=== PATIENT | female | born 1970 | race African-American/Black ===

== ENCOUNTER 2018-11-06 12:33 | Inpatient (IN) ==
--- NOTE | 2018-11-06 13:07 | PROVIDER DOCUMENTATION ---
HPI-General Adult - General Chief Complaint: Edema Stated Complaint: sick Time Seen by Provider: 11/06/18 13:00 Source: patient, family Allergies/Adverse Reactions: Patient Allergies Allergy/AdvReac Type Severity Reaction Status Date / Time No Known Allergies Allergy Verified 04/27/15 11:18 Home Medications: Home Medication List Medication Instructions Recorded Confirmed Last Taken Type Dalfampridine [Ampyra] 10 mg PO BID 11/06/18 11/06/18 11/06/18 History Prednisone 10 mg PO DIRECTED 11/06/18 11/06/18 11/06/18 History Solifenacin Succinate [Vesicare] 10 mg PO DAILY 11/06/18 11/06/18 11/06/18 05:00 History - History of Present Illness -Gen Adult Nature of Presenting Problems: 48 YOF presents with edema in LLE after being seen by [facility] RN. She denies pain. Spouse reports the patient has declined over the last 2 months and is now unable to walk without assistance. She has had multiple falls the most recent last week. The patient denies hitting her head or other injury. She also reports increased urination. The urine odor is noted when entering the room. Location of Pain/Injury: reports: none. denies: head, face, mouth, neck, chest, upper extremity, hand(s), abdomen, back, pelvis, genitalia, lower extremity, feet, upper body, lower body, generalized, other Pain Radiation: denies: no radiation, arm(s), back, buttocks, chest, epigastric, feet, groin, jaw, flank (L), legs (lower), LLQ, LUQ, neck, periumbilical, flank (R), RLQ, RUQ, shoulder(s), scapula, scrotal, sternal notch, suprapubic, legs (upper), urethral, vaginal, other Quality of Pain: reports: none Onset/Duration: reports: other (General decline over the last few months, multiple falls most recent one week ago) Timing: reports: still present Context/Activities at Onset: reports: none Modifying Factors: improves with: nothing Associated Symptoms: reports: genitourinary problems Similar Symptoms Previously?: No Recently seen or treated by another doctor?: Yes Review of Systems - Adult - REVIEW OF SYSTEMS - ADULT Constitutional: reports: no symptoms reported. denies: see HPI, chills, fever, fatique, night sweats, weight gain, weight loss, other Eyes: reports: no symptoms reported. denies: see HPI, discharge, dry eyes, decreased vision, blurred vision, double vision, eye pain, redness, other Ears, Nose, Mouth & Throat: reports: no symptoms reported. denies: see HPI, ear discharge, ear pain, hearing loss, tinnitus, epistaxis, sinus problem, nose pain, loose teeth, mouth/dental pain, mouth swelling, hoarseness, throat pain, throat swelling, other Cardiovascular: reports: no symptoms reported. denies: see HPI, chest pain, edema, heart murmur, irregular heart rate, orthopnea, palpitations, poor circulation, PND, syncope, other Respiratory: reports: no symptoms reported. denies: see HPI, chronic cough, cough, dyspnea on exertion, excessive sputum production, hemoptysis, pleurisy, shortness of breath, wheezing, other Gastrointestinal: reports: no symptoms reported. denies: see HPI, abdominal pain, hematemesis, constipation, diarrhea, difficulty swallowing, frequent heartburn, nausea, poor appetite, rectal bleeding, vomiting, other Genitourinary: reports: other (foul smelling urine, on mestrual cycle at this time). denies: no symptoms reported, see HPI, dysuria, discharge, frequency, flank pain, frequent UTI's, hematuria, hesitency, incontinence, urinary retention, urgency Musculoskeletal: reports: muscle aches, muscle weakness, other (spasms, known MS recieving treatment). denies: no symptoms reported, see HPI, bone pain, back pain, frequent leg cramps, joint pain, joint swelling, neck pain Integumentary: reports: no symptoms reported. denies: see HPI, hives, hair loss, itching, mole changes, nail changes, rash, skin sores/ulcer, skin thickening, other Neurological: reports: loss of balance. denies: no symptoms reported, see HPI, ataxia, dizziness/vertigo, headache/migraines, numbness, paresthesia, seizure, slurred speech, syncope, tremors, other Psychiatric: reports: no symptoms reported. denies: see HPI, anxiety, anti- depressant use, alcohol/drug dependence, depression, emotional problems, insomnia, panic attacks, suicidal thoughts, other Endocrine: reports: no symptoms reported. denies: see HPI, change in skin pigment, excessive sweating, goiter, cold intolerance, heat intolerance, increased hunger, increased thirst, polyuria, other Hematologic/Lymphatic: reports: no symptoms reported. denies: see HPI, blood clots, easy bruising, low blood count, lymphedema, prolonged bleeding, swollen lymph nodes, transfusions, other Allergic/Immunologic: reports: no symptoms reported. denies: see HPI, allergic reactions, allergic rhinitis, asthma, eczema, food allergy, frequent infections, hay fever, hives, positive PPD, urticaria, other Past History - Adult - PAST MEDICAL HISTORY-ADULT Review of Records: reports: Nursing Assessment Review, Social history reviewed & non-contributory. Neurological: reports: Multiple Sclerosis - PRIOR SURGERIES/PROCEDURES Surgical/Procedure History: reports: other (breast reduction) Physical Exam-General - CONSTITUTIONAL General Appearance: alert, no apparent distress - EYES Eyes: PERRL/EOMI, pink conjunctivae - HEAD, EARS, NOSE, MOUTH & THROAT HENMT: normocephalic/atraumatic, moist mucous membranes - NECK Neck: non-tender - RESPIRATORY Respiratory: chest non-tender, lungs clear, no respiratory distress - CARDIOVASCULAR Cardiovascular: normal peripheral pulses, regular rate, rhythm - GASTROINTESTINAL (ABDOMEN) Abdominal Exam: normal bowel sounds, non tender - LYMPHATIC Lymphatic: no adenopathy - MUSCULOSKELETAL Back Exam: normal inspection, no CVA tenderness Extremity: normal range of motion, non-tender - SKIN Integumentary: normal color, normal turgor - NEUROLOGIC Neurologic: grossly normal - PSYCHIATRIC Psych/Mental Status: normal mood/affect, oriented x 3 Progress - PLAN OF CARE/RESULTS Progress/Plan/Lab Results: Orders Category Date Time Status Saline Loc NOW Care 11/06/18 12:59 Ordered CHEST-1 VIEW [RAD] Stat Exams 11/06/18 12:59 Ordered BMP [BASIC METABOLIC PANEL] [CHEM] Stat Lab 11/06/18 13:00 Uncollected CBC WITH ELECTRONIC DIFF [HEME] Stat Lab 11/06/18 13:00 Uncollected D-DIMER [COAG] Stat Lab 11/06/18 13:00 Uncollected PROTIME WITH INR [COAG] Stat Lab 11/06/18 12:59 Uncollected PTT [COAG] Stat Lab 04/24/19 12:59 Uncollected URINALYSIS W/POSS RFLX CULT [URINALYSIS] Stat Lab 11/06/18 12:59 Uncollected Result Diagrams: 11/06/18 13:15 11/06/18 13:15 - REASSESSMENT Reassessment #1 Time Reassessed: 15:28 (SPOKE WITH HOSPITALIST FOR ADMIT) Departure - Departure Date of Disposition Decision: 11/06/18 Time of Disposition Decision: 15:25 DIAGNOSIS: DVT (deep venous thrombosis) Disposition: ADMITTED INPATIENT 09 Certified Medical Emergency: Emergent Condition: Stable - Critical Care Note This patient required my direct & personal management of CC.: No Attestation - Physician/ MAXIMINO Attestation Patient care was provided by Advanced Practice Provider:: Yes Advanced Practice Provider:: Delia Enamorado Advanced Practice Provider documentation review:: The Mid-level provider documentation, treatment plan and medical decision making was reviewed by the physician who agrees with all treatment and medical decision making by the MLP. The physician spent face to face time with patient:: No Advanced Practice Provider documentation review:: Supervising physician onsite and consulted in the evaluation and care of this patient. The physician did not have a face to face encounter with the patient.
[2018-11-06 13:32] LABS: URINE SOURCE CATH
[2018-11-06 13:37] LABS: BASO# 0.01 X1000 (0.0-0.2); BASO% 0.1 % (0.0-0.8); BILIRUBIN URINE NEGATIVE (NEGATIVE); BLOOD URINE NEGATIVE (NEGATIVE); COLOR YELLOW; EOS# 0.01 X1000 (0.0-0.7); EOS% 0.1 % (0.0-10.0); GLUCOSE URINE NEGATIVE (NEGATIVE); HEMATOCRIT 32.9 % (37.0-47.0); HEMOGLOBIN 10.7 g/dL (12.0-16.0); IMM GRAN% 1.5 % (0.0-0.5); KETONE URINE NEGATIVE (NEGATIVE); LEUKOCYTES URINE NEGATIVE (NEGATIVE); LYMPH# 1.39 X1000 (1.2-3.4); LYMPH% 10.5 % (20.5-51.1); MCH 26.5 PG (27-31); MCHC 32.5 g/dL (33-37); MCV 81.4 FL (81-99); MONO# 0.61 X1000 (0.11-0.59); MONO% 4.6 % (1.7-9.3); MPV 9.4 FL (7.4-10.4); NEUT# 11.02 X1000 (1.4-6.5); NEUT% 83.2 % (42.2-75.2); NITRITE URINE NEGATIVE (NEGATIVE); PH URINE 8.5; PLT 344 X1000 (130-400); PROTEIN URINE NEGATIVE (NEGATIVE); RBC 4.04 XMIL (4.2-5.4); RDW 17.5 % (11.5-14.5); SP GRAVITY URINE 1.013; TURBIDITY URINE HAZY (CLEAR); UR EPITHELIAL CELLS <10 /HPF (<10); URINE BACTERIA NEGATIVE /HPF; URINE RBC <10 /HPF (<10); URINE WBC <10 /HPF (<10); UROBILINOGEN URINE NORMAL (NORMAL); WBC 13.24 X1000 (4.8-10.8)
--- NOTE | 2018-11-06 13:55 | Diag Imaging Result Doc PS360 ---
EXAM: CHEST-1 VIEW HISTORY: Cough TECHNIQUE: Portable chest single view COMPARISON: None. FINDINGS: The lungs are well expanded. The heart is not enlarged. The vessels are not distended. There are no infiltrates. No effusion identified. IMPRESSION: No pneumonia. Electronically signed by Vasiliy Lucero 11/06/2018 1:52 PM
[2018-11-06 14:19] LABS: INR 0.94; PROTIME 13.3 Seconds (11.0-16.0)
[2018-11-06 14:20] LABS: PTT 26.2 Seconds (22.3-41.8)
[2018-11-06 14:22] LABS: AGAP 10; BUN 14 mg/dL (8-22); CALCIUM 9.2 mg/dL (8.8-10.2); CHLORIDE 103 mmol/L (98-107); COSMO 279; CREATININE 0.6 mg/dL (0.5-0.9); ESTIMATED GFR > 60; GLUCOSE 117 mg/dL (70-104); POTASSIUM 3.7 mmol/L (3.5-5.1); SODIUM 139 mmol/L (136-145); TCO2 26 mmol/L (25-35)
[2018-11-06 14:22] LABS: D-DIMER 1.73 ug/mLFEU (0.0-0.52)
[2018-11-06] MEDS ORDERED: LOVENOX 1 MG/KG SUBQ ONE (15:18)
[2018-11-06] MEDS ORDERED: LOVENOX SUBQ ONE (15:30)
[2018-11-06] MEDS ORDERED: TYLENOL PO PRN (16:02)
[2018-11-06] MEDS ORDERED: ZOFRAN IV PRN (16:02)
--- NOTE | 2018-11-06 16:47 | HISTORY AND PHYSICAL ---
HISTORY OF PRESENT ILLNESS: This is a 48-year-old who has a history of multiple sclerosis treated by Dr. De La Paz. I do not know that she has a primary care physician. PAST MEDICAL HISTORY: No other significant medical history. SURGICAL HISTORY: Has bilateral tubal ligation. She has had breast reduction. ALLERGIES: No known drug allergies. SOCIAL HISTORY: She quit smoking. No alcohol. No illicit drugs. She lives here in [place] with her . She presented after having left lower leg swelling around her left calf. No real pain. No rash. No fever or chills reported. Dopplers revealed a deep venous thrombosis in the soleal vein. She has never had a blood clot before that she recalls, but the main complaint was the swelling. FAMILY HISTORY: with cancer. Really no other family history that she reports. REVIEW OF SYSTEMS: She does not report any change in appetite or weight gain or loss. No fever or chills.HEENT: No change in hearing or visual acuity. Musculoskeletal/Neurologic: She has multiple sclerosis and that is actually improved and right now she is on steroids. Cardiovascular: No chest pain or tachy palpitation. Respiratory: No increased work of breathing or dyspnea or cough or pleuritic pain. Endocrinologic/Hematologic: No significant history. Gastrointestinal and Genitourinary: No gross hematuria or dysuria or hematochezia or change in bowels. PHYSICAL EXAMINATION: GENERAL: In the emergency room, she is awake and alert, oriented x3. VITAL SIGNS: Temperature 98 degrees, pulse 79, respirations 22, blood pressure 137/95. HEENT: Her pupils appear equal. NECK: No distended neck veins. No cervical or supraclavicular adenopathy. LUNGS: Clear anterior and lateral. CARDIOVASCULAR: Regular rhythm and rate without murmur or S3. Carotid, radial, and femoral pulses 2+ and symmetrical. ABDOMEN: Soft, nondistended. EXTREMITIES: No other edema other than swelling, nonpitting circumferential swelling around the left calf. No palpable cords. Good capillary refill in the feet. Pedal pulses 2+ and symmetrical. DIAGNOSTIC STUDIES: White count 13,240 and she is on steroids, hematocrit 32, platelet count 344,000. Sodium 139, potassium 3.7, chloride 103, BUN 14, creatinine 0.6, calcium 9.2. Urinalysis unremarkable. Chest x-ray: No pneumonitis. No infiltrates. Lungs well expanded. Cardiomediastinal silhouette unremarkable. ASSESSMENT AND PLAN: 1. Left deep venous thrombosis. No sign of pulmonary thromboemboli. We are going to put her on unfractionated heparin with Lovenox 1 mg/kg subcutaneous q.12 h. and let her go home, probably on Xarelto. We will keep her 24 hours, admit her to observation. 2. Multiple sclerosis. We will have her continue her current medications. We need to get a list of those and continue her steroids as well. Lab unremarkable. 3. Volume status looks good. 4. Hemodynamically looks stable. cc: Efren Weber MD [facility]TD[facility]
[2018-11-07] MEDS: LOVENOX SUBQ SCH ×2 (05:29→17:28)
[2018-11-07 07:45] LABS: BASO# 0.02 X1000 (0.0-0.2); BASO% 0.2 % (0.0-0.8); EOS# 0.09 X1000 (0.0-0.7); EOS% 0.9 % (0.0-10.0); HEMOGLOBIN 9.9 g/dL (12.0-16.0); LYMPH# 2.28 X1000 (1.2-3.4); LYMPH% 22.2 % (20.5-51.1); MCH 27.3 PG (27-31); MCHC 31.9 g/dL (33-37); MCV 85.4 FL (81-99); MONO# 0.85 X1000 (0.11-0.59); MONO% 8.3 % (1.7-9.3); MPV 10.2 FL (7.4-10.4); NEUT# 6.95 X1000 (1.4-6.5); NEUT% 67.4 % (42.2-75.2); PLT 295 X1000 (130-400); RBC 3.63 XMIL (4.2-5.4); RDW 18.2 % (11.5-14.5); WBC 10.29 X1000 (4.8-10.8)
[2018-11-07 08:12] LABS: AGAP 11; ALBUMIN 3.3 g/dL (3.5-5.0); ALKALINE PHOSPHATASE 75 U/L (32-104); BUN 14 mg/dL (8-22); CALCIUM 8.2 mg/dL (8.8-10.2); CHLORIDE 103 mmol/L (98-107); COSMO 275; CREATININE 0.5 mg/dL (0.5-0.9); ESTIMATED GFR > 60; GLUCOSE 108 mg/dL (70-104); GOT 11 U/L (10-30); GPT 16 U/L (10-36); POTASSIUM 3.5 mmol/L (3.5-5.1); SODIUM 137 mmol/L (136-145); TCO2 24 mmol/L (25-35); TOTAL PROTEIN 5.8 g/dL (6.3-8.3)
[2018-11-07 08:13] LABS: INR 1.03; PTT 30.2 Seconds (22.3-41.8)
[2018-11-07 08:31] LABS: FREE T4 1.25 ng/dL (0.93-1.70); TSH 2.48 uIUmL (0.27-4.20)
[2018-11-07] MEDS ORDERED: PREDNISONE PO SCH (10:45)
[2018-11-07] MEDS: VESICARE PO SCH (11:57)
[2018-11-07] MEDS: PREDNISONE PO SCH (11:57)
[2018-11-07] MEDS: PATIENT'S OWN MED PO SCH ×2 (11:58→21:00)
--- NOTE | 2018-11-07 12:59 | Diag Imaging Result Doc PS360 ---
FOREARM-RIGHT - 11/07/2018 INDICATION: missing catheter tip TECHNIQUE: Two views COMPARISON: None FINDINGS: Bones are intact and normally aligned. Joint spaces and soft tissues are clear. No radiodense foreign body visible. IMPRESSION: Negative exam. Electronically signed by Serjio Falcon 11/07/2018 12:56 PM
--- NOTE | 2018-11-07 13:45 | Extremity Venous Study ---
EXAM: Venous U/S Right Arm 11/07/2018 HISTORY: possible IV cannula broken off. TECHNIQUE: Venous ultrasound of the right arm with color Doppler flow COMMENT: No definite foreign bodies are demonstrated in the veins of the right arm. There is no evidence of deep venous or superficial venous thrombosis. No abnormal fluid collections are demonstrated. There is color Doppler flow in the veins. Plain radiographs of the forearm were also obtained which did not demonstrate a radiopaque foreign body. The upper arm has not been evaluated with plain films. IMPRESSION: No evidence of venous thrombosis or intravenous foreign body. Electronically signed by Denny Marie 11/07/2018 1:42 PM
--- NOTE | 2018-11-07 14:02 | PROGRESS NOTE ---
DATE: 11/07/2018 SUBJECTIVE: The patient reports fine. Denies any fever or chills. As per nursing staff, apparently, she has pulled out her IV access. No other issues noted as per nursing staff overnight. OBJECTIVE: Vitals: Temperature 98.3 degrees, heart rate 77, respiratory rate 18, blood pressure 107/63, O2 saturation 100% on room air. General Examination: This is a chronically ill-appearing 48-year-old female, lying in bed, in no acute distress. HEENT: Head is normocephalic and atraumatic. Neck: No JVD noted. No carotid bruits. No lymphadenopathy. No thyromegaly. Cardiovascular: S1, S2 heard. No murmurs, gallops, or rubs. Regular rate and rhythm. Respiratory: Clear bilaterally to auscultation. No work of breathing or using accessory muscles. Abdomen: Soft, nontender to palpation. Bowel sounds present. No organomegaly. Extremities: There is some circumferential swelling around the left calf. Peripheral pulses present in both legs. Neurological: Patient is awake and oriented. Follows commands. LABORATORY DATA: Reviewed. ASSESSMENT AND PLAN: 1. Left lower extremity deep vein thrombosis. The patient has been admitted to the hospital for this condition. She has been placed on Lovenox 1 mg/kg every 12 hours. She does not have any signs of respiratory distress or any shortness of breath. So, I do not think this patient has developed any PE. In any case, the patient is stable from that condition. 2. Multiple sclerosis. Patient is on current medications. As per mother who is at bedside, she requests for this patient to be sent to rehabilitation facility. template worker will be consulted. DISPOSITION: The patient is medically stable. We have consulted social work professor for rehabilitation facility. Physical Therapy evaluation will be requested. We will continue to monitor this patient. cc: Lamont Leary MD
[2018-11-08] MEDS: LOVENOX SUBQ SCH ×2 (05:24→18:10)
[2018-11-08] MEDS: PREDNISONE PO SCH (08:35)
[2018-11-08] MEDS: VESICARE PO SCH (08:36)
[2018-11-08] MEDS: PATIENT'S OWN MED PO SCH ×2 (08:37→21:25)
[2018-11-08] MEDS: MIRALAX PO SCH (11:01)
--- NOTE | 2018-11-08 14:33 | PROGRESS NOTE ---
DATE: 11/08/2018 SUBJECTIVE: The patient reports feeling fine. No complaints at this time. OBJECTIVE: Vital signs: Temperature is 98.8, heart rate 82, respiratory rate 18, blood pressure 141/76, O2 saturation is 98% on room air. General: This is a chronically ill- appearing 48-year- old female lying in bed, in no acute distress. Cardiovascular: S1, S2 heard. No murmurs, rubs or gallops. Regular rate and rhythm. Respiratory: Clear bilaterally to auscultation. No work of breathing or use of accessory muscles. Abdomen is soft, nontender to palpation. Bowel sounds present. No organomegaly. Extremities: There is circumferential swelling noted around the left calf. Peripheral pulses are present in both legs. Neurologic: The patient is awake, alert and oriented, able to move all 4 extremities. ASSESSMENT AND PLAN: 1. Left lower extremity deep venous thrombosis. The patient has been admitted to the hospital for that condition. Currently she is on Lovenox 4 mg/kg q.12 hours. We will continue with the same management. 2. Multiple sclerosis. The patient is on home medications. 3. Physical deconditioning. During the last month, according to mother who is at bedside, the patient has been declining physically, becoming somewhat wheelchair bound, and she requested for this patient to be sent to rehab facility. stucco worker has been consulted. We are working on it. cc: Lamont Leary MD [facility]
[2018-11-09] MEDS: LOVENOX SUBQ SCH ×2 (05:16→17:47)
[2018-11-09] MEDS: PREDNISONE PO SCH (10:49)
[2018-11-09] MEDS: PATIENT'S OWN MED PO SCH ×2 (10:49→20:41)
[2018-11-09] MEDS: MIRALAX PO SCH (10:49)
[2018-11-09] MEDS: VESICARE PO SCH (10:49)
--- NOTE | 2018-11-09 11:11 | PROGRESS NOTE ---
DATE: 11/09/2018 SUBJECTIVE: Patient resting quietly in bed. No complaints voiced at this time. OBJECTIVE: Vital signs: Temperature 98.5 degrees, pulse 87, respirations 18, blood pressure 112/92 satting 97% on room air. General: This is a 48-year-old female lying in the bed and answers questions appropriately. HENT: Normocephalic, atraumatic. Normal ENT inspection. Oropharynx and nares are clear. Eyes: Pupils are equal, round, reactive to light and accommodation. Extraocular movements are intact. Neck: Normal inspection, normal range of motion. Lungs: Clear to auscultation bilaterally with equal lung expansion and chest wall movement. Heart: Regular rate and rhythm. No murmurs, rubs, or gallops. Abdomen: Soft, nontender, nondistended. Bowel sounds are present x4 quadrants. Musculoskeletal: Able to move all 4 extremities. Neurological: The cranial nerves 2-12 appear grossly intact. ASSESSMENT: 1. Left lower extremity deep vein thrombosis. We will continue on her Lovenox every 12 hours. 2. Multiple sclerosis. Continue her home medications. 3. Physical deconditioning. We are waiting for social work to find a rehabilitation bed at the patient's request due to declining physicality. Dictated by BRITTNY Cruz for Lamont Leary MD Addendum: Patient seen and examined by myself. Agree with BRITTNY note. It reflects my assessment and plan. cc: BRITTNY Cruz MD [facility]
[2018-11-10] MEDS: LOVENOX SUBQ SCH (06:29)
--- NOTE | 2018-11-10 10:32 | PROGRESS NOTE ---
DATE: 11/10/2018 SUBJECTIVE: Patient sitting up in bed, resting quietly. No complaints voiced at this time. OBJECTIVE: Vital signs: Temperature 98.6 degrees, pulse 89, respirations 18, blood pressure 123/77, saturating 99% on room air. General: This is a 48-year-old female sitting up in the bed and answering questions appropriately. HEENT: Normocephalic, atraumatic. Normal ENT inspection. Oropharynx and nares are clear. Eyes: Pupils are equal, round, reactive to light and accommodation. Extraocular movements are intact. Neck: Normal inspection. Normal range of motion. Lungs: Clear to auscultation bilaterally with equal lung expansion and chest wall movement. Heart: Regular rate and rhythm. No murmurs, rubs, or gallops. Abdomen: Soft, nontender, nondistended. Bowel sounds are present x4 quadrants. Musculoskeletal: Able to move all 4 extremities. Neurological: The cranial nerves 2-12 appear grossly intact. ASSESSMENT: 1. Left lower extremity DVT. We are going to discontinue the Lovenox subcutaneous q.12 and transition to Xarelto 15 mg p.o. b.i.d. beginning with her dose tonight at 9 p.m. 2. Multiple sclerosis. We will continue her home medications. 3. Physical deconditioning, we are waiting to find a rehab bed at patient's request due to declining physicality. Dictated by BRITTNY Cruz for Lamont Leary MD Addendum: Patient is seen and examined by myself. Agree with BRITTNY note. It reflects my assessment and plan. cc: BRITTNY Cruz MD [facility]
[2018-11-10] MEDS: PATIENT'S OWN MED PO SCH ×2 (10:50→20:23)
[2018-11-10] MEDS: MIRALAX PO SCH (10:50)
[2018-11-10] MEDS: PREDNISONE PO SCH (10:51)
[2018-11-10] MEDS: VESICARE PO SCH (10:52)
--- NOTE | 2018-11-10 16:18 | Extremity Venous Study ---
PROCEDURE NAME: Venous U/S Left Leg - 11/06/2018 ART DEPARTMENT HEAD: Jossy. REQUESTING PHYSICIAN: Jacques. INDICATIONS: Edema and tenderness of the left calf. FINDINGS: Deep and superficial veins in the left lower extremity were visualized. There is a lack of compressibility at the soleal vein in the mid calf, consistent with acute DVT noted here. SUMMARY: Acute deep venous thrombosis in the left soleal vein but no other deep or superficial cc: Osman Schulte [facility]
[2018-11-10] MEDS: XARELTO PO SCH (20:23)
[2018-11-11] MEDS: VESICARE PO SCH (08:54)
[2018-11-11] MEDS: PREDNISONE PO SCH (08:54)
[2018-11-11] MEDS: XARELTO PO SCH ×2 (08:54→20:31)
[2018-11-11] MEDS: PRINIVIL PO SCH (08:54)
[2018-11-11] MEDS: PATIENT'S OWN MED PO SCH ×2 (08:55→20:31)
[2018-11-11] MEDS: MIRALAX PO SCH (08:55)
--- NOTE | 2018-11-11 22:49 | PROGRESS NOTE ---
DATE: 11/11/2018 SUBJECTIVE: Patient notes that overall she is feeling better, but still very weak, tired, fatigued, has not really been out of bed. PHYSICAL EXAMINATION: Vital Signs: Reviewed. Temperature 98.4, pulse 87, respiratory rate 18, BP 158/111. General: Patient is awake, alert. HEENT: Normocephalic. Neck: Supple. CARDIOVASCULAR: Regular rate. Chest: Clear. Abdomen: Soft, nondistended. Extremities: Moves all extremities, although does have generalized weakness. ASSESSMENT: 1. Hypertensive emergency. Overall, blood pressures are better. 2. Left lower extremity deep vein thrombosis. 3. Multiple sclerosis. cc: Ulysses Hung MD
[2018-11-12] MEDS: PRINIVIL PO SCH (08:58)
[2018-11-12] MEDS: XARELTO PO SCH (08:58)
[2018-11-12] MEDS: VESICARE PO SCH (08:58)
[2018-11-12] MEDS: PATIENT'S OWN MED PO SCH (08:59)
[2018-11-12] MEDS ORDERED: PREDNISONE PO SCH (09:00)
[2018-11-12] MEDS: MIRALAX PO SCH (09:04)
[2018-11-12 12:36] VITALS: BP 147/97
--- NOTE | 2018-11-12 21:13 | DISCHARGE SUMMARY ---
ADMISSION DATE: 11/08/2018 DISCHARGE DATE: 11/12/2018 ADMISSION DIAGNOSES: 1. Left lower extremity deep venous thrombosis. 2. Multiple sclerosis flare. 3. Deconditioning. DISCHARGE DIAGNOSES: 1. Left lower extremity deep venous thrombosis. 2. Multiple sclerosis flare. 3. Deconditioning. DIAGNOSTIC PROCEDURES AND FINDINGS: 1. Chest x-ray 11/06/18 negative exam. 2. Venous Doppler study 11/06/18 shows acute DVT of the left soleal vein but no other deep or superficial. 3. Forearm x-ray 11/07/18, negative exam. 4. Extremity venous exam, 11/07/18, no evidence of venous thrombosis of intravenous foreign body of the right arm. HOSPITAL COURSE: Mrs. Lance is a 48-year-old female with MS followed by Dr. De La Paz, in [place], who came in with left leg edema that was painless. It has been going on for some time. She had a venous extremity Doppler in the ER which noted left lower extremity DVT. She was started on Lovenox therapeutic dose and was transitioned over to Xarelto. She was also having somewhat of an MS flare, so we started her on prednisone taper which will be continued to completion. She did have some deconditioning and it was ultimately thought she would need to go to rehab, so this was evaluated and taken care of by our physical therapy and social work team. Overall her condition has improved. She is now stable for discharge home. Of note, she did have a bit of hypertensive urgency which was treated appropriately, so we will continue the lisinopril. CONSULTATIONS: None. DISCHARGE MEDICATIONS: 1. Ampyra 10 mg b.i.d. 2. Prednisone 20 mg daily x5 days, then prednisone 10 mg x5 days, then stop. 3. VESIcare 10 mg daily. 4. Xarelto 15 mg p.o. b.i.d. for a total of 21 days, which will be November 30, and then on December 01, start Xarelto 20 mg p.o. with supper. 5. Lisinopril 5 mg p.o. daily. DISCHARGE ACTIVITY: Resume activity as tolerated. DISCHARGE DIET: Regular. DISPOSITION AND OTHER DISCHARGE INSTRUCTIONS: The patient is discharged to [facility]. She is to continue all medications as instructed. Follow up with Dr. Laganke as directed and her PCP within the month or sooner if needed. She is to return to the ER or call for worsening complaints or concerns. All questions answered. DISCHARGE TIME: Greater than 35 minutes. Dictated by BRITTNY Stark for Ulysses Hung MD cc: BRITTNY Stark MD [facility] C. Laganke, MD
--- NOTE | 2018-11-12 21:35 | DISCHARGE SUMMARY ---
ADMISSION DATE: 11/08/2018 DISCHARGE DATE: 11/12/2018 ADDENDUM: Patient was seen and examined by myself. Full note dictated and discussed with nurse practitioner. On discharge, patient is awake, alert. She is in no current distress. She is still having some difficulty ambulating, and therefore will be transferred to rehabilitation. She has a deep venous thrombosis. We will need to continue Xarelto 15 twice a day for 21 days, and then switch to 20 daily. Her blood pressure is elevated, and we started her on lisinopril, and this will be followed outpatient. cc: Ulysses Hung MD
[2018-11-20] MEDS ORDERED: PREDNISONE PO SCH (09:00)
== END 2018-11-12 17:45 | DRG 301 ==
LOC: SUPCPDRO → ED 12:33 → INTOOBSV 16:39 → SUATTDRO 16:39 → EDIPHOLD 16:39 → P.MEDSURG 17:17 → SUATTDRO 11-08 09:28
PROVIDERS: ATTEND Family Medicine
CPT/HCPCS: 51701; 71010; 71045; 73090; 80048; 80053; 81001; 82607; 82746; 83735; 84439; 84443; 85025; 85379; 85610; 85730; 93971; 96372; 97110; 97163; 97165; 97530; 97535; 99285; A9270; J1650; J7506; J7512; P9612